=== PATIENT | male | born 1945 | race Caucasian/White ===

== ENCOUNTER → 2020-02-19 | Outpatient (CLI) | payer MEDICARE, BC ==
[~2020-02-19] MED LIST: CLON.2 PO; METO25ER PO; VITAMIN D31000 UNI1 PO
== END | disposition home or self-care (01) ==
LOC: PLD 11:19 → LAB SHORT 11:19
DX: L28.1 Prurigo nodularis (principal)
CPT/HCPCS: 88305

== ENCOUNTER 2020-06-25 06:51 | Day surgery (SDC) | payer MEDICARE, BC ==
[~2020-06-25] VITALS: Ht 185.4 cm; Wt 130.1 kg
[~2020-06-25 06:51] MED LIST changes: +ATOR40TA PO
== END 2020-06-25 08:57 | disposition home or self-care (01) ==
LOC: ORSCSDS 06:51
PROVIDERS: Internal Medicine Gastroenterology
PROC: 0DBL8ZX Excision of Transverse Colon, Via Natural or Artificial Opening Endoscopic, Diagnostic (ICD-10-PCS; principal; 2020-06-25 08:00)
DX: Z12.11 Encounter for screening for malignant neoplasm of colon (principal); D12.3 Benign neoplasm of transverse colon; K64.8 Other hemorrhoids; K57.30 Diverticulosis of large intestine without perforation or abscess without bleeding; Z86.010 Personal history of colon polyps; Z80.0 Family history of malignant neoplasm of digestive organs; I10 Essential (primary) hypertension; Z79.899 Other long term (current) drug therapy; Z87.891 Personal history of nicotine dependence
CPT/HCPCS: 88305; J0330; J0461; J2405; J2704; J7120

== ENCOUNTER → 2022-05-14 | Outpatient (CLI) | payer MEDICARE, BC | END | disposition home or self-care (01) | LOC: LAB SHORT 11:43 | DX: D22.22 Melanocytic nevi of left ear and external auricular canal (principal) | CPT/HCPCS: 88305 ==

== ENCOUNTER → 2022-11-25 | Outpatient (CLI) | payer MEDICARE, BC | LOC: PLD 12:24 → LAB SHORT 12:24 | DX: C44.619 Basal cell carcinoma of skin of left upper limb, including shoulder (principal) | CPT/HCPCS: 88305 ==

== ENCOUNTER → 2023-06-09 | Outpatient (CLI) | payer MEDICARE, BC | END | disposition home or self-care (01) | LOC: PLD 12:39 → LAB SHORT 12:39 | DX: L57.0 Actinic keratosis (principal); R23.4 Changes in skin texture; L98.8 Other specified disorders of the skin and subcutaneous tissue | CPT/HCPCS: 88305 ==

== ENCOUNTER 2023-12-28 11:40 | Day surgery (SDC) | payer MEDICARE, BC ==
[~2023-12-28] VITALS: Ht 185.4 cm; Wt 124.1 kg
[~2023-12-28 11:40] MED LIST changes: +Lactated Ringer's 1,000 ML IV ONE; +propofoL 50 ML IV ONE
[2023-12-28] MEDS ORDERED: Lactated Ringer's 1,000 ML IV ONE (12:31)
[2023-12-28 13:52] VITALS: BP 133/71
== END 2023-12-28 13:40 | disposition home or self-care (01) ==
LOC: ORSCSDS 11:40
PROVIDERS: Internal Medicine Gastroenterology
PROC: 0DJD8ZZ Inspection of Lower Intestinal Tract, Via Natural or Artificial Opening Endoscopic (ICD-10-PCS; principal; 2023-12-28 13:00)
DX: Z12.11 Encounter for screening for malignant neoplasm of colon (principal); Z86.010 Personal history of colon polyps; K57.30 Diverticulosis of large intestine without perforation or abscess without bleeding; Z80.0 Family history of malignant neoplasm of digestive organs
CPT/HCPCS: J2704; J7120